=== PATIENT | female | born 1945 | race Caucasian/White ===

== ENCOUNTER 2024-05-29 14:36 | Inpatient (IN) ==
--- NOTE | 2024-05-29 14:46 | ED Triage Note ---
Date of Service May 29, 2024 Provider in Triage Author: Viri Savage History of Present Illness This patient was briefly evaluated while in triage. An abbreviated physical exam was performed. This patient is a 78-year-old Female who presents to the ED for evaluation via EMS for evaluation of illness x 1 week, fevers, generalized pain and weakness fall yesterday and today-didn't hit her head and denies any focal injuries from the fall called EMS because she couldn't get up recently started on metoprolol Physical Exam GENERAL: NAD CARDIOVASCULAR: RRR RESPIRATORY: CTA ABDOMEN: BS x 4. Nontender to palpation. Initial orders for labs and / or imaging were placed and patient was placed in the waiting area until a bed is available. Please see further documentation for the full ED course.
[2024-05-29] MEDS: ACETAMINOPHEN 500 MG TAB PO STA (15:18)
[2024-05-29 15:33] LABS: Basophils # (auto) 0.06 K/uL (0.00-0.20); Basophils % (auto) 0.3 %; Eosinophils # (auto) 0.02 K/uL (0.00-0.50); Eosinophils % (auto) 0.1 %; Hematocrit (blood only) 36.9 % (37.0-47.0); Hemoglobin 12.2 g/dl (12.0-16.0); Immature Granulocytes # (auto) 0.16 K/uL (0.01-0.20); Immature Granulocytes % (auto) 0.8 %; Lymphocytes # (auto) 0.48 K/uL (1.20-3.40); Lymphocytes % (auto) 2.5 %; Mean Corpuscular Hgb Conc 33.1 g/dL (32.0-36.0); Mean Corpuscular Volume 90.9 fL (80.0-100.0); Mean Platelet Volume 9.5 fL (9.4-12.4); Monocytes # (auto) 1.81 K/uL (0.11-0.59); Monocytes % (auto) 9.6 %; Neutrophils # (auto) 16.41 K/uL (1.40-6.50); Neutrophils % (auto) 86.7 %; Platelet Count 208 K/uL (130-400); RDW Coefficient of Variation 13.3 % (11.5-14.5); RDW Standard Deviation 44.3 fL (36.4-46.3); Red Blood Count 4.06 M/uL (4.20-5.40); White Blood Count 18.94 K/ul (4.8-10.8)
--- NOTE | 2024-05-29 15:42 | XRay Report ---
XR chest 1V not portable HISTORY: 78 years-old Female weakness, illness COMPARISON: 04/29/2021 TECHNIQUE: AP view the chest FINDINGS: Cardiomediastinal and hilar silhouettes are within normal limits. No pneumothorax, pleural effusion, airspace consolidation or pulmonary edema. Degenerative changes of the shoulders and spine. IMPRESSION: No acute process. ACT 112: Negative or not required by law. The above report was generated using voice recognition software. It may contain grammatical, syntax o r spelling errors. Electronically signed by: Andrew Gray M.D. 05/29/2024 3:41 PM
[2024-05-29 15:58] LABS: Albumin Level 3.8 gm/dl (3.4-5.0); Anion Gap 9 (3-11); Bilirubin,Total 0.4 mg/dl (0.2-1.0); Calcium 9.2 mg/dl (8.6-10.3); Carbon Dioxide 23 mmol/L (21-32); Chloride 99 mmol/L (98-107); Magnesium 1.9 mg/dl (1.7-2.4); Potassium 3.9 mmol/L (3.5-5.1); Sodium 131 mmol/L (136-145)
[2024-05-29 16:03] LABS: Troponin I High Sensitivity 15.3 pg/ml (0-14)
[2024-05-29 16:04] LABS: Alanine Aminotransferase 23 U/L (7-52); Alkaline Phosphatase 82 U/L (34-104); Aspartate Aminotransferase 64 U/L (13-39); BUN Creatinine Ratio 27.3 (10-20); Blood Urea Nitrogen 41 mg/dl (6-23); Creatine Kinase 1569 U/L (26-192); Globulin 3.8 gm/dl (2.5-4.0); Glucose 116 mg/dl (70-99(Fasting)); Total Protein 7.6 gm/dl (6.0-8.3)
--- NOTE | 2024-05-29 16:07 | Emergency Department Note ---
Impression & Plan Febrile illness, acute, Generalized weakness, Acute UTI (urinary tract infection), Rhabdomyolysis ED Provider Note NAME: WILD TEIXEIRA AGE: 78 SEX: Female INFORMANT: Patient ED PROVIDER(S): Jhonny Murrieta MD CHIEF COMPLAINT: Illness PLAN: Disposition: admitted Outpatient prescription management: None Referral: None MEDICAL DECISION MAKING: Patient presented because of illness. Workup was initiated. Chest x-ray and BioFire testing were done and were negative. Patient had a negative chest x-ray and BioFire. Patient had no significant injury from her fall just felt generally sore all over. She was found to have a significant leukocytosis and elevated total CK. Troponin borderline. Tick labs are negative. Patient was hydrated. Urinalysis was obtained and was concerning for infection. The patient had a slight temperature. She was treated with Tylenol, fluids, and Rocephin. Given the generalized weakness and multiple falls further evaluation and management in the hospital was deemed appropriate. [facility] Patient was evaluated in the ER and admitted for further management. Care/management discussed with: none Level of care consideration(s): After review of the information above and other included data, I feel the patient requires escalation of care to admission. Triage Nursing notes: reviewed and agree them. Vital Signs: reviewed and remarkable for no significant abnormalities Additional History obtained from: none Chronic Medical/Social Conditions affecting care: Hypertension, diabetes Prior/ Outside/ External records reviewed: none Differential Diagnosis: Viral syndrome, sepsis, UTI, pneumonia, metabolic, electrolyte abnormalities, cardiac sources, as well as other pathologies. Diagnostics, independently interpreted by me: ECG: Twelve-lead ECG was sinus tachycardia first-degree block and inferolateral T wave inversion at 112 bpm. Cardiac Monitoring: Cardiac monitoring ordered by me: The patient was placed on continuous cardiac monitoring and observed. It revealed a normal sinus rhythm at 94 beats per minute without ectopy or evidence of dysrhythmia. Medical decision rules: none Imaging studies: Chest x-ray. Findings: A chest x-ray was performed and revealed no pneumothorax, effusion, infiltrate, pulmonary edema, free air under the diaphragm, or wide mediastinum. Impression: No acute disease. HPI: 78 year old Female arrives for evaluation of generalized weakness and illness. This started about a week ago and is worsening. Patient states she feels generally weak and had 2 falls. She denies any significant injury from the falls. She did not hit her head. She is not currently taking any blood thinners. She notes generalized muscle aches.. The patient also notes the following associated symptoms, congestion cough.. The patient has taken Tylenol for relieving factors. Current pain is rated as mild. Patient notes she has been having some bladder pain but attributed to her pt denies LOC, headache, visual changes, neck pain, breathing difficulties, nausea, vomiting, abdominal pain, back pain, melena, hematochezia, numbness, lymphadenopathy, rash, or other complaints. PAST MEDICAL HISTORY: See Below, chronic venous insufficiency, hypertension PAST SURGICAL HISTORY: See Below, SOCIAL HISTORY: See Below, non-smoker HOME MEDICATIONS: See Below ALLERGIES: See Below VITALS: See Below PHYSICAL EXAMINATION: GENERAL: Awake, alert, mildly ill-appearing, in no distress HENT: Normocephalic, atraumatic. Oropharynx unremarkable. EYES: Normal conjunctiva. Sclera non-icteric. NECK: Inspection normal. Non-tender. Supple. No nuchal rigidity. FROM. No masses. RESPIRATORY: Clear to auscultation. No wheezes. No rales. Normal respiratory effort. CARDIAC: Tachycardic rate. Normal rhythm. No murmurs. No rubs. Extremities warm and well perfused. Pulses equal. No JVD. GI: Soft, non-distended. No tenderness to palpation. No rebound or guarding. No masses. RECTAL: Deferred. MUSCULOSKELETAL: Atraumatic. Chest examination reveals no tenderness. The back is symmetrical on inspection without obvious abnormality. There is no CVA tenderness to palpation. No joint edema. LOWER EXTREMITIES: Calves are equal size bilaterally and non-tender. 2+ edema. No discoloration. NEURO: Normal sensorium. No sensory or motor deficits noted. SKIN: No rash or jaundice noted. PROCEDURES: none CRITICAL CARE: none OBSERVATION NOTE: none Past Med/Surg History Problem List (Updated 05/29/24 @ 21:02 by Gaurav Espitia) Rhabdomyolysis (Acute) Acute UTI (urinary tract infection) (Acute) Generalized weakness (Acute) Febrile illness, acute (Acute) Incontinence (Chronic) Chronic venous insufficiency (Chronic) Hypertension (Chronic) Morbid obesity (Chronic) Impaired fasting glucose (Chronic) Circadian rhythm sleep disorder, delayed sleep phase type (Chronic) Migraine headache (Chronic) Depression with anxiety (Chronic) Hypothyroidism (Chronic) Insomnia (Chronic) Stress incontinence (Chronic) Hyperlipidemia (Chronic) Medical History History of colon polyps Vitamin D deficiency Surgical History Hx of oral surgery History of esophagogastroduodenoscopy (EGD) H/O of hysterectomy with bilateral oophorectomy H/O colonoscopy S/P hernia repair H/O wisdom tooth extraction S/P tonsillectomy Family History Mother Depression Dementia Osteoarthritis Pulmonary fibrosis Scleroderma Father Heart disease Myocardial infarction Migraines Sister Migraines Grandfather (Maternal) Diabetes Denies family history of Ovarian cancer Prostate cancer Breast cancer Colorectal cancer Cancer Hypertension Stroke Social History Smoking Status: Never smoker Second Hand Exposure: No; Do You Dip or Chew Tobacco: No; Hx Alcohol Use: Yes Alcohol type: beer and wine Alcohol Intake Frequency: Monthly or Less Hx Substance Use: No Preferred Language: Gambian Communication Ability: Effective Hearing Ability: Normal Choir Accompanist Required: No Beliefs That Will Affect Care: None marital status: single Current Living Situation: Alone current occupational status: retired Feels Safe at Home: Yes Childhood Exposure to Second-Hand Smoke: No Dental Care, Regularly: No Physical Activity Frequency: Does not Exercise Seatbelt Use: always Sunscreen Use: No Assistive Devices: None Allergies Allergies Allergy/AdvReac Type Severity Reaction Status Date / Time latex Allergy Mild localized Verified 10/30/23 11:07 itching amlodipine [From Lotrel] AdvReac Severe lower jaw Verified 10/30/23 11:07 swelling benazepril [From Lotrel] AdvReac Intermediate lower jaw Verified 10/30/23 11:07 swelling sulfacetamide AdvReac Intermediate ankle Verified 10/30/23 11:07 pruritus Lume Deodorant AdvReac Mild Rash/irrita Uncoded 10/30/23 11:07 tion Home Meds Home Medications Medication Instructions Recorded Confirmed multivitamin 1 tab PO HS 03/26/19 10/30/23 digestive enzymes 2 cap PO BID 03/27/19 10/30/23 coenzyme Q10 200 mg capsule 400 mg PO QAM 12/02/19 10/30/23 ibuprofen 200 mg tablet 600 mg PO QAM 02/16/21 10/30/23 magnesium oxide 600 mg PO HS 02/16/21 10/30/23 acetaminophen 650 mg 1,950 mg PO BID 12/27/21 10/30/23 tablet,extended release (Tylenol Arthritis Pain) collagen miscellaneous 10/11/22 10/30/23 [id number] borate 3 tab PO DAILY 10/11/22 10/30/23 [Move Free Joint [facility]] Previous Rx's Medication Instructions Recorded albuterol sulfate 90 mcg/actuation 2 puff inhalation Q6H PRN 03/06/22 aerosol inhaler shortness of breath or wheezing #8.5 grams clotrimazole-betamethasone 1 1 applic topical BID PRN rash #45 03/20/22 %-0.05 % topical cream grams diclofenac sodium 1 % topical gel 2 g topical QID PRN arthritis pain 04/30/23 #100 grams metoprolol succinate 25 mg 25 mg PO DAILY #90 tabs 04/30/23 tablet,extended release 24 hr azelastine 137 mcg (0.1 %) nasal 2 spray intranasal BID #30 mL 05/24/23 spray hydrochlorothiazide 25 mg tablet 25 mg PO DAILY #90 tabs 06/20/23 potassium chloride 10 mEq 10 meq PO DAILY #90 tabs 06/20/23 tablet,extended release topiramate 50 mg tablet 50 mg PO HS #90 tabs 06/20/23 montelukast 10 mg tablet 10 mg PO DAILY #90 tabs 07/11/23 rosuvastatin 5 mg tablet 5 mg PO DAILY #90 tabs 08/20/23 metformin 500 mg tablet,extended 500 mg PO DAILY #90 tabs 10/19/23 release 24 hr amitriptyline 25 mg tablet See Rx Instructions .Route 12/10/23 .COMPLEX #450 tabs vibegron 75 mg tablet (Gemtesa) 75 mg PO DAILY #90 tabs 02/21/24 levothyroxine 125 mcg tablet 125 mcg PO DAILY #90 tabs 04/21/24 Results & Data (ED) Vital Signs Vital Signs - 24 hr 05/29/24 14:44 05/29/24 15:43 05/29/24 15:54 Temperature 37.6 C H Temperature Source Oral Pulse Rate 113 H 108 H Pulse Rate [Apical] 102 H Respiratory Rate 18 18 Respiratory Effort / Characteristics Non-Labored Spontaneous Non-Labored Spontaneous Respiratory Depth Normal Normal Respiratory Pattern Regular Blood Pressure 111/71 Blood Pressure [Left Arm] 114/67 Blood Pressure Mean 84 Blood Pressure Mean [Left Arm] 82 Pulse Oximetry 98 92 Oxygen Delivery Method Room Air Room Air Sepsis Recent Fever Within 48 Hours No Sepsis New/Unexplained Change in Mental Status N/A Sepsis Action Taken by Nursing No Action Required 05/29/24 15:55 05/29/24 17:00 05/29/24 18:00 Temperature Temperature Source Pulse Rate Pulse Rate [Apical] 92 H 96 H Respiratory Rate 28 H 18 Respiratory Effort / Characteristics Non-Labored Spontaneous Non-Labored Spontaneous Respiratory Depth Normal Normal Respiratory Pattern Regular Blood Pressure Blood Pressure [Left Arm] 97/60 L 109/70 Blood Pressure Mean Blood Pressure Mean [Left Arm] 72 83 Pulse Oximetry 92 94 98 Oxygen Delivery Method Room Air Room Air Room Air Sepsis Recent Fever Within 48 Hours Sepsis New/Unexplained Change in Mental Status Sepsis Action Taken by Nursing 05/29/24 20:00 05/29/24 20:22 Temperature Temperature Source Pulse Rate Pulse Rate [Apical] 88 94 H Respiratory Rate 19 25 H Respiratory Effort / Characteristics Non-Labored Spontaneous Non-Labored Spontaneous Respiratory Depth Normal Normal Respiratory Pattern Blood Pressure Blood Pressure [Left Arm] 98/72 L 104/60 Blood Pressure Mean Blood Pressure Mean [Left Arm] 80 74 Pulse Oximetry 95 95 Oxygen Delivery Method Room Air Room Air Sepsis Recent Fever Within 48 Hours Sepsis New/Unexplained Change in Mental Status Sepsis Action Taken by Nursing Laboratory Data 05/29/24 15:22 05/29/24 15:22 Lab Results 05/29/24 05/29/24 Range/Units 15:22 16:32 WBC 18.94 H (4.8-10.8) K/ul RBC 4.06 L (4.20-5.40) M/uL Hgb 12.2 (12.0-16.0) g/dl Hct 36.9 L (37.0-47.0) % MCV 90.9 (80.0-100.0) fL MCH 30.0 (25.0-34.0) pg MCHC 33.1 (32.0-36.0) g/dL RDW Std Deviation 44.3 (36.4-46.3) fL RDW Coeff of Jenn 13.3 (11.5-14.5) % Plt Count 208 (130-400) K/uL MPV 9.5 (9.4-12.4) fL Immature Gran % (Auto) 0.8 % Neut % (Auto) 86.7 % Lymph % (Auto) 2.5 % [place] % (Auto) 9.6 % Eos % (Auto) 0.1 % Baso % (Auto) 0.3 % Neut # (Auto) 16.41 H (1.40-6.50) K/uL Lymph # (Auto) 0.48 L (1.20-3.40) K/uL [place] # (Auto) 1.81 H (0.11-0.59) K/uL Eos # (Auto) 0.02 (0.00-0.50) K/uL Baso # (Auto) 0.06 (0.00-0.20) K/uL Immature Gran # (Auto) 0.16 (0.01-0.20) K/uL Sodium 131 L (136-145) mmol/L Potassium 3.9 (3.5-5.1) mmol/L Chloride 99 (98-107) mmol/L Carbon Dioxide 23 (21-32) mmol/L Anion Gap 9 (3-11) BUN 41 H (6-23) mg/dl Creatinine 1.50 H (0.6-1.2) mg/dl Est Cr Clr Drug Dosing Not Reportable eGFR 35.67 BUN/Creatinine Ratio 27.3 H (10-20) Glucose 116 H (70-99(Fasting)) mg/dl Lactate 1.1 (0.4-2.0) mmol/L Calcium 9.2 (8.6-10.3) mg/dl Magnesium 1.9 (1.7-2.4) mg/dl Total Bilirubin 0.4 (0.2-1.0) mg/dl AST 64 H (13-39) U/L ALT 23 (7-52) U/L Alkaline Phosphatase 82 (34-104) U/L Total Creatine Kinase 1569 H (26-192) U/L Troponin I High Sens 15.3 H (0-14) pg/ml Total Protein 7.6 (6.0-8.3) gm/dl Albumin 3.8 (3.4-5.0) gm/dl Globulin 3.8 (2.5-4.0) gm/dl Albumin/Globulin Ratio 1.0 (0.9-2) Procalcitonin 10.40 H (0-0.5) ng/ml TSH 0.797 (0.300-4.500) uIu/ml Urine Color Yellow Urine Appearance Turbid A (Clear) Urine pH 5.5 (4.5-7.5) Ur Specific [place] 1.019 (1.000-1.030) Urine Protein 2+ H (Negative) Urine Glucose (UA) Negative (Negative) Urine Ketones Negative (Negative) Urine Blood 2+ H (Negative) Urine Nitrite Negative (Negative) Urine Bilirubin Negative (Negative) Urine Urobilinogen Negative (Negative) Ur Leukocyte Esterase 3+ H (Negative) Urine WBC (Auto) >50 H (0-5) /hpf Urine RBC (Auto) 0-2 (0-2) /hpf U Hyaline Cast (Auto) 11-20 H (0-2) /lpf U Epithel Cells (Auto) 3-5 H (0-2) /hpf Urine Bacteria (Auto) 4+ H (None Seen) Adenovirus (PCR) Not Detected (NotDetected) Anaplasma Smear See Comment Babesia Smear See Comment B. pertussis DNA (PCR) Not Detected (NotDetected) B.parapertussis DNA PCR Not Detected (NotDetected) Lyme Disease Screen Negative (Negative) C. pneumoniae DNA (PCR) Not Detected (NotDetected) Coronavirus OC43 (PCR) Not Detected (NotDetected) Coronavirus HKU1 (PCR) Not Detected (NotDetected) Coronavirus 229E (PCR) Not Detected (NotDetected) SARS-CoV-2 (PCR) Not Detected (NotDetected) Coronavirus NL63 (PCR) Not Detected (NotDetected) Human Metapneumovir PCR Not Detected (NotDetected) Influenza Type A (PCR) Not Detected (NotDetected) Influenza Type B (PCR) Not Detected (NotDetected) M. pneumoniae (PCR) Not Detected (NotDetected) Parainfluenza 1 (PCR) Not Detected (NotDetected) Parainfluenza 2 (PCR) Not Detected (NotDetected) Parainfluenza 3 (PCR) Not Detected (NotDetected) Parainfluenza 4 (PCR) Not Detected (NotDetected) RSV (PCR) Not Detected (NotDetected) Entero/Rhino (PCR) Not Detected (NotDetected) Administered Medications Sodium Chloride (Nss) 1,000 mls @ 150 mls/hr IV .Q6H40M AUGUST Stop: 05/30/24 16:14 Last Admin: 05/29/24 16:30 Dose: 150 mls/hr Documented By: JANAK Discontinued Medications Acetaminophen (Acetaminophen 500 Mg Tab) 1,000 mg PO NOW STA Stop: 05/29/24 15:04 Last Admin: 05/29/24 15:18 Dose: 1,000 mg Documented By: JUSTIN Ceftriaxone Sodium (Rocephin) 2,000 mg in 50 mls @ 100 mls/hr IV NOW STA Stop: 05/29/24 17:40 Last Infusion: 05/29/24 17:47 Dose: Infused Documented By: Admin: 05/29/24 17:17 Dose: 100 mls/hr Documented By: JANAK Sodium Chloride (Nss) 1,000 mls @ 999 mls/hr IV .Q1H1M ONE Stop: 05/29/24 18:56 Last Infusion: 05/29/24 19:15 Dose: Infused Documented By: Admin: 05/29/24 18:13 Dose: 999 mls/hr Documented By: JANAK Imaging Data Radiologist's Impression: Chest X-Ray 05/29/24 14:54 XR chest 1V not portable HISTORY: 78 years-old Female weakness, illness COMPARISON: 04/29/2021 TECHNIQUE: AP view the chest FINDINGS: Cardiomediastinal and hilar silhouettes are within normal limits. No pneumothorax, pleural effusion, airspace consolidation or pulmonary edema. Degenerative changes of the shoulders and spine. IMPRESSION: No acute process. ACT 112: Negative or not required by law. The above report was generated using voice recognition software. It may contain grammatical, syntax or spelling errors. Electronically signed by: Andrew Gray M.D. 05/29/2024 3:41 PM Discharge Plan Visit Data Chief Complaint: Illness Stated Complaint: FALL ED Provider: Jhonny Murrieta Discharge Problem: Febrile illness, acute, Generalized weakness, Acute UTI (urinary tract infection), Rhabdomyolysis Patient Disposition: Admitted As Inpatient
[2024-05-29 16:13] LABS: Thyroid Stimulating Hormone 0.797 uIu/ml (0.300-4.500)
[2024-05-29 16:27] LABS: Adenovirus PCR Not Detected (NotDetected); Bordetella parapertussis PCR Not Detected (NotDetected); Bordetella pertussis PCR Not Detected (NotDetected); Chlamydia pneumoniae PCR Not Detected (NotDetected); Coronavirus 229E PCR Not Detected (NotDetected); Coronavirus CoV-2 (COVID19)PCR Not Detected (NotDetected); Coronavirus HKU1 PCR Not Detected (NotDetected); Coronavirus NL63 PCR Not Detected (NotDetected); Coronavirus OC43PCR Not Detected (NotDetected); Human Metapneumovirus PCR Not Detected (NotDetected); Influenza A PCR Not Detected (NotDetected); Influenza B PCR Not Detected (NotDetected); Mycoplasma pneumoniae PCR Not Detected (NotDetected); Parainfluenza Virus 1 PCR Not Detected (NotDetected); Parainfluenza Virus 2 PCR Not Detected (NotDetected); Parainfluenza Virus 3 PCR Not Detected (NotDetected); Parainfluenza Virus 4 PCR Not Detected (NotDetected); Respiratory Syncytial VirusPCR Not Detected (NotDetected); Rhinovirus/Enterovirus PCR Not Detected (NotDetected)
[2024-05-29] MEDS: SODIUM CHLORIDE 0.9% 1,000 ML IV SCH ×2 (16:30→21:38)
--- NOTE | 2024-05-29 16:50 | Electrocardiogram Report ---
Test Reason : Blood Pressure : */* mmHG Vent. Rate : 112 BPM Atrial Rate : 112 BPM P-R Int : 266 ms QRS Dur : 90 ms QT Int : 330 ms P-R-T Axes : 49 -19 -46 degrees QTcB Int : 450 ms Sinus tachycardia with 1st degree A-V block Diffuse Nonspecific ST and T wave abnormality Abnormal ECG No previous ECGs available Confirmed by Josh Monzon ([id number]) on 05/29/2024 4:50:29 PM Referred By: Confirmed By: Josh Monzon
[2024-05-29 16:56] LABS: Appearance Urine Turbid (Clear); Bacteria Urine Automated 4+ (None Seen); Bilirubin Urine Negative (Negative); Blood Urine 2+ (Negative); Color Urine Yellow; Glucose Urine UA Negative (Negative); Ketones Urine Negative (Negative); Leukocyte Esterase Urine 3+ (Negative); Nitrite Urine Negative (Negative); Protein Urine 2+ (Negative); RBC Urine Automated 0-2 /hpf (0-2); Specific Gravity Urine 1.019 (1.000-1.030); Urobilinogen Urine Negative (Negative); WBC Urine Automated >50 /hpf (0-5); pH Urine 5.5 (4.5-7.5)
[2024-05-29] MEDS: cefTRIAXone SODIUM 2,000 MG/50 ML BAG IV STA (17:17)
--- NOTE | 2024-05-29 18:01 | History & Physical Report ---
Date of Service May 29, 2024 Assessment & Plan (1) Sepsis: Plan: SIRS criteria met with HR and elevated WBC Secondary to urinary source RUQ on exam therefore US liver ordered although suspect this is less likely as a cause Empiric ceftriaxone, follow up urine and blood cultures (2) Rhabdomyolysis: Plan: CK 1569 on admission. NSS @ 125ml/hr. Repeat CK in AM. (3) Fall: Plan: Secondary to generalized weakness suspect from UTI PT/OT (4) Hypothyroidism: Plan: TSH WNL Continue levothyroxine (5) Hypertension: Plan: Hold HCTZ Continue metoprolol (6) Acute UTI (urinary tract infection): Plan VTE Prophylaxis - heparin 5000 units SQ BID Diet - regular Disposition - admit to PCU Admission and Anticipated Discharge Date Admission Date: May 29, 2024 History of Present Illness Chief Complaint: Fall Generalized weakness Primary Care Provider: Mary Rodriguez MD Richelle Thurman is a 78 year old female who presents to the ER with a fall and generalized weakness. She also notes bladder pains for the last month and urinary frequency for the last week. Fever for the last 2 days with high 101.1 degrees Fahrenheit. No back pain, dysuria or change in urine color or smell. No respiratory of gastrointestinal symptoms. She lives by herself. She took all her morning medications this morning. Allergies Allergy/AdvReac Type Severity Reaction Status Date / Time latex Allergy Mild localized Verified 10/30/23 11:07 itching amlodipine [From Lotrel] AdvReac Severe lower jaw Verified 10/30/23 11:07 swelling benazepril [From Lotrel] AdvReac Intermediate lower jaw Verified 10/30/23 11:07 swelling sulfacetamide AdvReac Intermediate ankle Verified 10/30/23 11:07 pruritus Lume Deodorant AdvReac Mild Rash/irrita Uncoded 10/30/23 11:07 tion Home Medications Medication Instructions Recorded Confirmed Type multivitamin 1 tab PO HS 03/26/19 10/30/23 History digestive enzymes 2 cap PO BID 03/27/19 10/30/23 History coenzyme Q10 200 mg capsule 400 mg PO QAM 12/02/19 10/30/23 History ibuprofen 200 mg tablet 600 mg PO QAM 02/16/21 10/30/23 History magnesium oxide 600 mg PO HS 02/16/21 10/30/23 History acetaminophen 650 mg 1,950 mg PO BID 12/27/21 10/30/23 History tablet,extended release (Tylenol Arthritis Pain) albuterol sulfate 90 mcg/actuation 2 puff inhalation Q6H PRN 03/06/22 10/30/23 Rx aerosol inhaler shortness of breath or wheezing #8.5 grams clotrimazole-betamethasone 1 1 applic topical BID PRN rash #45 03/20/22 10/30/23 Rx %-0.05 % topical cream grams collagen miscellaneous 10/11/22 10/30/23 History rwnwjdta-hpgkh-resic-CF borate 3 tab PO DAILY 10/11/22 10/30/23 History [[facility]] diclofenac sodium 1 % topical gel 2 g topical QID PRN arthritis pain 04/30/23 10/30/23 Rx #100 grams metoprolol succinate 25 mg 25 mg PO DAILY #90 tabs 04/30/23 10/30/23 Rx tablet,extended release 24 hr azelastine 137 mcg (0.1 %) nasal 2 spray intranasal BID #30 mL 05/24/23 10/30/23 Rx spray hydrochlorothiazide 25 mg tablet 25 mg PO DAILY #90 tabs 06/20/23 10/30/23 Rx potassium chloride 10 mEq 10 meq PO DAILY #90 tabs 06/20/23 10/30/23 Rx tablet,extended release topiramate 50 mg tablet 50 mg PO HS #90 tabs 06/20/23 10/30/23 Rx montelukast 10 mg tablet 10 mg PO DAILY #90 tabs 07/11/23 10/30/23 Rx rosuvastatin 5 mg tablet 5 mg PO DAILY #90 tabs 08/20/23 10/30/23 Rx metformin 500 mg tablet,extended 500 mg PO DAILY #90 tabs 10/19/23 10/30/23 Rx release 24 hr amitriptyline 25 mg tablet See Rx Instructions .Route 12/10/23 Rx .COMPLEX #450 tabs vibegron 75 mg tablet (Gemtesa) 75 mg PO DAILY #90 tabs 02/21/24 Rx levothyroxine 125 mcg tablet 125 mcg PO DAILY #90 tabs 04/21/24 Rx Past Med/Surg History Problem List (Updated 05/30/24 @ 09:37 by Quentin Field MD) Fall Sepsis Rhabdomyolysis (Acute) Acute UTI (urinary tract infection) (Acute) Generalized weakness (Acute) Febrile illness, acute (Acute) Incontinence (Chronic) Chronic venous insufficiency (Chronic) Hypertension (Chronic) Morbid obesity (Chronic) Impaired fasting glucose (Chronic) Circadian rhythm sleep disorder, delayed sleep phase type (Chronic) Migraine headache (Chronic) Depression with anxiety (Chronic) Hypothyroidism (Chronic) Insomnia (Chronic) Stress incontinence (Chronic) Hyperlipidemia (Chronic) Medical History History of colon polyps Vitamin D deficiency Surgical History Hx of oral surgery History of esophagogastroduodenoscopy (EGD) H/O of hysterectomy with bilateral oophorectomy H/O colonoscopy S/P hernia repair H/O wisdom tooth extraction S/P tonsillectomy Family History Mother Depression Dementia Osteoarthritis Pulmonary fibrosis Scleroderma Father Heart disease Myocardial infarction Migraines Sister Migraines Grandfather (Maternal) Diabetes Denies family history of Ovarian cancer Prostate cancer Breast cancer Colorectal cancer Cancer Hypertension Stroke Social History Smoking Status: Never smoker Second Hand Exposure: No; Do You Dip or Chew Tobacco: No; Tobacco Cessation Education Requested by Patient: No Hx Alcohol Use: No Hx Substance Use: No Preferred Language: Belarusian Communication Ability: Effective Hearing Ability: Normal Geology Associate Required: No Beliefs That Will Affect Care: None marital status: single Current Living Situation: Alone current occupational status: retired Other Information That Helps Us Care for You: No Feels Safe at Home: Yes Safety Concerns: Feels Safe At This Time Childhood Exposure to Second-Hand Smoke: No Dental Care, Regularly: No Physical Activity Frequency: Does not Exercise Seatbelt Use: always Sunscreen Use: No Assistive Devices: Glasses and Walker Review of Systems Review of Systems: All systems reviewed & are unremarkable except as noted in HPI & below Physical Exam Constitutional: WD/WN, vitals as above ENMT: external ear and nose normal, oropharynx normal Respiratory: normal respiratory effort, lungs clear to auscultation Cardiovascular: Rate/Rhythm: regular rhythm and + tachycardic Heart Sounds: no murmur Extremities: normal capillary refill; no calf tenderness and no pedal edema Gastrointestinal (Abdomen): normal bowel sounds, soft, nontender, no hepatosplenomegaly Musculoskeletal: no cyanosis or clubbing, extremities motor strength 5/5 Skin: no rashes, warm and dry Neurologic: moves all extremities and awake; not confused Psychiatric: A+Ox3, euthymic affect Genitourinary: no CVA tenderness Results & Data Results & Data Vital Signs (Past 12 Hours) Vital Signs Temp Pulse Pulse Resp BP BP Pulse Ox 05/29/24 17:00 92 H 28 H 97/60 L 94 05/29/24 15:55 92 05/29/24 15:54 102 H 18 114/67 92 05/29/24 15:43 108 H 05/29/24 14:44 37.6 C H 113 H 18 111/71 98 O2 Del Method 05/29/24 17:00 Room Air 05/29/24 15:55 Room Air 05/29/24 15:54 Room Air 05/29/24 15:43 05/29/24 14:44 Room Air Diagnostic Findings XR chest 1V not portable HISTORY: 78 years-old Female weakness, illness COMPARISON: 04/29/2021 TECHNIQUE: AP view the chest FINDINGS: Cardiomediastinal and hilar silhouettes are within normal limits. No pneumothorax, pleural effusion, airspace consolidation or pulmonary edema. Degenerative changes of the shoulders and spine. IMPRESSION: No acute process. Medications Administered ER Medications Given: Acetaminophen 1000mg PO Normal saline @ 150ml/hr Ceftriaxone 2000mg IV ECG Rate (beats per minute): 112 Rhythm: sinus tachycardia Findings: + 1st degree AV block Comparison ECG Date: no prior available Code Status & VTE Plan Code Status Full VTE Prophylaxis Plan VTE Prophylaxis will be ordered: Yes PG Care Time/CCT Total # of Minutes Spent Total Time Spent with Patient: Total time spent is greater than 50% in coordination of care (as documented) at patient's floor/unit and/or counseling patient: Coding Level of Care Code 49454 INT INP/OBS CARE 3/75MIN Diagnoses Sepsis A41.9 Rhabdomyolysis M62.82 Fall W19.XXXA Hypothyroidism E03.9 Hypertension I10 Acute UTI (urinary tract infection) N39.0
[2024-05-29] MEDS: SODIUM CHLORIDE 0.9% 1,000 ML IV ONE (18:13)
[2024-05-29] MEDS: MONTELUKAST SODIUM 10 MG TABLET PO SCH (21:41)
[2024-05-29] MEDS: AMITRIPTYLINE HCL 25 MG TAB PO SCH (21:41)
[2024-05-29] MEDS: TOPIRAMATE 50 MG TAB PO SCH (21:41)
--- NOTE | 2024-05-29 21:57 | Ultrasound Report ---
Exam(s): US LIVER EXAM: US Abdomen Limited CLINICAL HISTORY: Reason for exam: RUQ pain on exam, sepsis. TECHNIQUE: Real-time ultrasound of the abdomen with image documentation. COMPARISON: No relevant prior studies available. FINDINGS: Liver: 0.8 x 0.6 x 0.8 cm left hepatic lobe hyperdense structure likely representing a hemangioma. Kidneys: Slight prominence of the right renal collecting system. 2.4 cm right parapelvic cyst. Lymph nodes: 2.5 x 1.6 x 0.7 cm perihepatic lymph node. IMPRESSION: No acute findings in the visualized abdomen. Chronic changes as above Electronically signed by: Manny Wallis MD 05/29/24 21:57 PM
[2024-05-29] MEDS: HEPARIN SOD 5,000 UNIT/0.5 ML VIAL SQ SCH (23:26)
--- NOTE | 2024-05-30 03:41 | Communication Note ---
Date of Service: May 30, 2024 I was alerted by nursing that pt had a witnessed mechanical fall while ambulating out of bathroom back to her bed. Patient seen and examined. Patient states she was trying to ambulate with IV pole and lost her balance. She denies LOC, head strike, new pain. Not on blood thinning medication. Defer imaging at this time. Patient instructed to inform nursing if she develops any new pain or other symptoms. Resident Activity Tracking Resident Involvement: Resident Care Provided Care Provided: Adult Hospital Medicine
[2024-05-30] MEDS: LEVOTHYROXINE SODIUM 125 MCG TABLET PO SCH (05:36)
[2024-05-30 08:00] LABS: Basophils # (auto) 0.03 K/uL (0.00-0.20); Basophils % (auto) 0.2 %; Eosinophils # (auto) 0.03 K/uL (0.00-0.50); Eosinophils % (auto) 0.2 %; Hematocrit (blood only) 36.5 % (37.0-47.0); Immature Granulocytes # (auto) 0.09 K/uL (0.01-0.20); Immature Granulocytes % (auto) 0.7 %; Lymphocytes # (auto) 0.76 K/uL (1.20-3.40); Mean Corpuscular Hemoglobin 30.6 pg (25.0-34.0); Mean Corpuscular Hgb Conc 32.9 g/dL (32.0-36.0); Mean Corpuscular Volume 93.1 fL (80.0-100.0); Mean Platelet Volume 10.3 fL (9.4-12.4); Monocytes # (auto) 1.66 K/uL (0.11-0.59); Monocytes % (auto) 13.1 %; Neutrophils % (auto) 79.8 %; Platelet Count 184 K/uL (130-400); RDW Coefficient of Variation 13.4 % (11.5-14.5); RDW Standard Deviation 45.9 fL (36.4-46.3); Red Blood Count 3.92 M/uL (4.20-5.40); White Blood Count 12.67 K/ul (4.8-10.8)
[2024-05-30 08:04] LABS: Albumin Level 3.4 gm/dl (3.4-5.0); Bilirubin,Total 0.3 mg/dl (0.2-1.0); Calcium 8.4 mg/dl (8.6-10.3); Potassium 3.8 mmol/L (3.5-5.1)
[2024-05-30 08:11] LABS: BUN Creatinine Ratio 25.4 (10-20); Creatinine Clr Calc Pharmacy 41.7 ml/min; Globulin 3.3 gm/dl (2.5-4.0); Total Protein 6.7 gm/dl (6.0-8.3)
[2024-05-30] MEDS: METOPROLOL SUCC 25MG EXT REL TAB PO SCH (09:01)
[2024-05-30] MEDS: VIBEGRON 75 MG TAB PO SCH (09:01)
[2024-05-30] MEDS: ROSUVASTATIN CALCIUM 5 MG TAB PO SCH (09:01)
[2024-05-30] MEDS: AZELASTINE HCL 0.1% NASAL 200 SPRAYS/27,400 MCG BTL NAE SCH (09:02)
[2024-05-30] MEDS: ACETAMINOPHEN 325 MG TAB PO PRN (09:24)
[2024-05-30] MEDS: cefTRIAXone SODIUM 2,000 MG/50 ML BAG IV SCH (16:55)
--- NOTE | 2024-05-30 18:02 | Hospitalist Progress Note ---
Date of Service May 30, 2024 Assessment & Plan (1) Sepsis: Plan: SIRS criteria met with HR and elevated WBC Secondary to urinary source, urine culture with E. coli without sensitives. Blood cultures negative after 24 hours. Liver US unremarkable WBC improving Continue empiric ceftriaxone (2) Rhabdomyolysis: Plan: CK down from admission. Will discontinue further IV fluids after current order a s eating and drinking well (3) Fall: Plan: Secondary to generalized weakness suspect from UTI PT/OT - plan to discharge to rehab (4) Hypothyroidism: Plan: TSH WNL Continue levothyroxine (5) Hypertension: Plan: Continue to hold HCTZ Continue metoprolol (6) Acute UTI (urinary tract infection): Plan VTE Prophylaxis - heparin 5000 units SQ BID Diet - regular Disposition - stable for transfer to med/surg Admission and Anticipated Discharge Date Admission Date: May 29, 2024 Subjective Patient fell overnight. Did not hit her head. No apparent injuries from fall. She is actually keen to be discharged however PT/OT recommending rehabilitation. Physical Exam Constitutional: WD/WN, vitals as above Respiratory: normal respiratory effort, lungs clear to auscultation Cardiovascular: Rate/Rhythm: regular rhythm and + tachycardic Heart Sounds: no murmur Extremities: no calf tenderness and no pedal edema Gastrointestinal (Abdomen): normal bowel sounds, soft, nontender, no hepatosplenomegaly Musculoskeletal: no cyanosis or clubbing, extremities motor strength 5/5 Skin: no rashes, warm and dry Neurologic: moves all extremities and awake; not confused Psychiatric: A+Ox3, euthymic affect Results & Data Results & Data Vital Signs (Past 12 Hours) Vital Signs Temp Pulse Pulse Resp BP Pulse Ox O2 Del Method 05/30/24 16:58 37.5 C 05/30/24 15:03 38.6 C H 103 H 20 121/71 96 Room Air 05/30/24 14:50 63 05/30/24 13:40 36.5 C 102 H 20 123/66 Room Air 05/30/24 10:36 37.5 C 99 H 19 97/61 L 93 Room Air 05/30/24 08:07 36.8 C 101 H 19 118/50 L 100 Room Air 05/30/24 07:29 91 H Laboratory Results Abnormal lab results 05/30/24 Range/Units 07:00 WBC 12.67 H (4.8-10.8) K/ul RBC 3.92 L (4.20-5.40) M/uL Hct 36.5 L (37.0-47.0) % Neut # (Auto) 10.10 H (1.40-6.50) K/uL Lymph # (Auto) 0.76 L (1.20-3.40) K/uL Mccreary # (Auto) 1.66 H (0.11-0.59) K/uL Sodium 134 L (136-145) mmol/L Carbon Dioxide 19 L (21-32) mmol/L BUN 33 H (6-23) mg/dl Creatinine 1.30 H (0.6-1.2) mg/dl BUN/Creatinine Ratio 25.4 H (10-20) Glucose 109 H (70-99(Fasting)) mg/dl Calcium 8.4 L (8.6-10.3) mg/dl AST 54 H (13-39) U/L Total Creatine Kinase 937 H (26-192) U/L PG Care Time/CCT Total # of Minutes Spent Total Time Spent with Patient: Total time spent is greater than 50% in coordination of care (as documented) at patient's floor/unit and/or counseling patient: Coding Level of Care Code 72558 SUB INP/OBS CARE 3/50MIN Diagnoses Sepsis A41.9 Rhabdomyolysis M62.82 Fall W19.XXXA Hypothyroidism E03.9 Hypertension I10 Acute UTI (urinary tract infection) N39.0
[2024-05-30] MEDS: IBUPROFEN 200 MG TAB PO PRN (23:40)
[2024-05-31 07:35] LABS: Basophils # (auto) 0.04 K/uL (0.00-0.20); Basophils % (auto) 0.5 %; Eosinophils # (auto) 0.16 K/uL (0.00-0.50); Eosinophils % (auto) 1.8 %; Hematocrit (blood only) 30.7 % (37.0-47.0); Hemoglobin 10.1 g/dl (12.0-16.0); Immature Granulocytes # (auto) 0.04 K/uL (0.01-0.20); Immature Granulocytes % (auto) 0.5 %; Lymphocytes # (auto) 1.03 K/uL (1.20-3.40); Lymphocytes % (auto) 11.7 %; Mean Corpuscular Hemoglobin 29.8 pg (25.0-34.0); Mean Corpuscular Hgb Conc 32.9 g/dL (32.0-36.0); Mean Corpuscular Volume 90.6 fL (80.0-100.0); Mean Platelet Volume 10.2 fL (9.4-12.4); Monocytes # (auto) 2.06 K/uL (0.11-0.59); Monocytes % (auto) 23.3 %; Neutrophils % (auto) 62.2 %; Platelet Count 191 K/uL (130-400); RDW Coefficient of Variation 13.4 % (11.5-14.5); RDW Standard Deviation 44.6 fL (36.4-46.3); Red Blood Count 3.39 M/uL (4.20-5.40); White Blood Count 8.83 K/ul (4.8-10.8)
[2024-05-31 08:11] LABS: BUN Creatinine Ratio 22.5 (10-20); Calcium 8.3 mg/dl (8.6-10.3); Creatinine Clr Calc Pharmacy 48.8 ml/min; Potassium 3.2 mmol/L (3.5-5.1)
--- NOTE | 2024-05-31 21:43 | Hospitalist Progress Note ---
Date of Service May 31, 2024 Assessment & Plan (1) Sepsis: Plan: SIRS criteria met with HR and elevated WBC Secondary to urinary source, urine culture with E. coli without sensitives. Blood cultures negative after 24 hours. Liver US unremarkable WBC improving Continue empiric ceftriaxone; patient still with intermittent fevers. will order procal in AM. (2) Rhabdomyolysis: Plan: CK down from admission. Will discontinue further IV fluids after current order as eating and drinking well (3) Fall: Plan: Secondary to generalized weakness suspect from UTI PT/OT - plan to discharge to rehab (4) Hypothyroidism: Plan: TSH WNL Continue levothyroxine (5) Hypertension: Plan: Continue to hold HCTZ Continue metoprolol (6) Acute UTI (urinary tract infection): Plan VTE Prophylaxis - heparin 5000 units SQ BID Diet - regular Disposition - stable for transfer to med/surg patient is asking to be discharged home Admission and Anticipated Discharge Date Admission Date: May 29, 2024 Subjective 78 yo female reports no new symptoms. Review of Systems Review of Systems: All systems reviewed & are unremarkable except as noted in HPI & below Physical Exam Constitutional: WD/WN, vitals as above Respiratory: normal respiratory effort, lungs clear to auscultation Cardiovascular: Rate/Rhythm: regular rate and regular rhythm Heart Sounds: no murmur Extremities: no calf tenderness and no pedal edema Gastrointestinal (Abdomen): normal bowel sounds, soft, nontender, no hepatosplenomegaly Musculoskeletal: no cyanosis or clubbing, extremities motor strength 5/5 Skin: no rashes, warm and dry Neurologic: moves all extremities and awake; not confused Psychiatric: A+Ox3, euthymic affect Results & Data Results & Data Vital Signs (Past 12 Hours) Vital Signs Temp Pulse Resp BP Pulse Ox O2 Del Method 05/31/24 19:49 37.7 C H 101 H 16 133/72 98 Room Air 05/31/24 14:27 36.3 C L 87 18 100/67 97 Room Air PG Care Time/CCT Total # of Minutes Spent Total Time Spent with Patient: Total time spent is greater than 50% in coordination of care (as documented) at patient's floor/unit and/or counseling patient: Coding Level of Care Code 68878 SUB INP/OBS CARE 2/35MIN Diagnoses Sepsis A41.9 Rhabdomyolysis M62.82 Fall W19.XXXA Hypothyroidism E03.9 Hypertension I10 Acute UTI (urinary tract infection) N39.0
[2024-06-01 07:21] LABS: Basophils # (auto) 0.05 K/uL (0.00-0.20); Basophils % (auto) 0.6 %; Eosinophils # (auto) 0.28 K/uL (0.00-0.50); Eosinophils % (auto) 3.4 %; Hemoglobin 10.1 g/dl (12.0-16.0); Immature Granulocytes # (auto) 0.04 K/uL (0.01-0.20); Immature Granulocytes % (auto) 0.5 %; Lymphocytes # (auto) 0.87 K/uL (1.20-3.40); Lymphocytes % (auto) 10.7 %; Mean Corpuscular Hemoglobin 30.3 pg (25.0-34.0); Mean Corpuscular Hgb Conc 33.7 g/dL (32.0-36.0); Mean Corpuscular Volume 90.1 fL (80.0-100.0); Mean Platelet Volume 9.5 fL (9.4-12.4); Monocytes % (auto) 24.6 %; Neutrophils % (auto) 60.2 %; Platelet Count 213 K/uL (130-400); RDW Coefficient of Variation 13.4 % (11.5-14.5); RDW Standard Deviation 45.1 fL (36.4-46.3); Red Blood Count 3.33 M/uL (4.20-5.40); White Blood Count 8.14 K/ul (4.8-10.8)
[2024-06-01 07:45] LABS: BUN Creatinine Ratio 23.5 (10-20); C Reactive Protein 29.44 mg/dl (0-0.5); Calcium 8.4 mg/dl (8.6-10.3); Creatinine Clr Calc Pharmacy 55.3 ml/min; Potassium 3.4 mmol/L (3.5-5.1)
--- NOTE | 2024-06-01 16:44 | Hospitalist Progress Note ---
Date of Service June 01, 2024 Assessment & Plan (1) Sepsis: Plan: SIRS criteria met with HR and elevated WBC Secondary to urinary source, urine culture with E. coli without sensitives. Blood cultures negative after 24 hours. Liver US unremarkable WBC improving Continue empiric ceftriaxone; patient still with intermittent fevers. Procal remains elevated. will keep in house until fever free for 24 hours (2) Rhabdomyolysis: Plan: CK down from admission. Will discontinue further IV fluids after current order as eating and drinking well (3) Fall: Plan: Secondary to generalized weakness suspect from UTI PT/OT - recommends rehab; patient opting now for home health (4) Hypothyroidism: Plan: TSH WNL Continue levothyroxine (5) Hypertension: Plan: Continue to hold HCTZ Continue metoprolol (6) Acute UTI (urinary tract infection): Plan VTE Prophylaxis - heparin 5000 units SQ BID Diet - regular Disposition - stable for transfer to med/surg patient is asking to be discharged home Admission and Anticipated Discharge Date Admission Date: May 29, 2024 Subjective Patient reports no new symptoms. She did have a fever overnight Physical Exam Constitutional: WD/WN, vitals as above Respiratory: normal respiratory effort, lungs clear to auscultation Cardiovascular: Rate/Rhythm: regular rate and regular rhythm Heart Sounds: no murmur Extremities: no calf tenderness and no pedal edema Gastrointestinal (Abdomen): normal bowel sounds, soft, nontender, no hepatosplenomegaly Musculoskeletal: no cyanosis or clubbing, extremities motor strength 5/5 Skin: no rashes, warm and dry Neurologic: moves all extremities and awake; not confused Psychiatric: A+Ox3, euthymic affect Results & Data Results & Data Vital Signs (Past 12 Hours) Vital Signs Temp Pulse Resp BP Pulse Ox O2 Del Method 06/01/24 08:11 36.4 C L 90 16 121/74 94 Room Air PG Care Time/CCT Total # of Minutes Spent Total Time Spent with Patient: Total time spent is greater than 50% in coordination of care (as documented) at patient's floor/unit and/or counseling patient: Coding Level of Care Code 85955 SUB INP/OBS CARE 3/50MIN Diagnoses Sepsis A41.9 Rhabdomyolysis M62.82 Fall W19.XXXA Hypothyroidism E03.9 Hypertension I10 Acute UTI (urinary tract infection) N39.0
[2024-06-02 00:22] LABS: Babesia microti DNA Not Detected (Not Detected)
[2024-06-02 07:09] LABS: Basophils # (auto) 0.06 K/uL (0.00-0.20); Basophils % (auto) 0.9 %; Eosinophils # (auto) 0.32 K/uL (0.00-0.50); Eosinophils % (auto) 4.8 %; Hematocrit (blood only) 30.2 % (37.0-47.0); Immature Granulocytes # (auto) 0.05 K/uL (0.01-0.20); Immature Granulocytes % (auto) 0.7 %; Lymphocytes # (auto) 1.36 K/uL (1.20-3.40); Lymphocytes % (auto) 20.3 %; Mean Corpuscular Hemoglobin 29.5 pg (25.0-34.0); Mean Corpuscular Hgb Conc 33.1 g/dL (32.0-36.0); Mean Corpuscular Volume 89.1 fL (80.0-100.0); Mean Platelet Volume 9.4 fL (9.4-12.4); Monocytes # (auto) 1.61 K/uL (0.11-0.59); Neutrophils % (auto) 49.3 %; Platelet Count 237 K/uL (130-400); RDW Coefficient of Variation 13.7 % (11.5-14.5); RDW Standard Deviation 44.9 fL (36.4-46.3); Red Blood Count 3.39 M/uL (4.20-5.40)
[2024-06-02 07:21] LABS: Albumin Globulin Ratio 0.9 (0.9-2); BUN Creatinine Ratio 22.7 (10-20); Bilirubin,Total 0.3 mg/dl (0.2-1.0); C Reactive Protein 23.5 mg/dl (0-0.5); Calcium 8.7 mg/dl (8.6-10.3); Creatinine Clr Calc Pharmacy 61.6 ml/min; Globulin 3.3 gm/dl (2.5-4.0); Potassium 3.7 mmol/L (3.5-5.1); Total Protein 6.3 gm/dl (6.0-8.3)
--- NOTE | 2024-06-02 19:11 | Hospitalist Progress Note ---
Date of Service June 02, 2024 Assessment & Plan (1) Sepsis: Plan: SIRS criteria met with HR and elevated WBC-Secondary to urinary source, urine culture with E. coli pansens. Blood cultures remain NGTD Liver US shows hemangioma in liver, fullness of right renal collecting system, and enlarged perihepatic LN---> suggest repeat RUQ US in [address] which may be reactive to current infection Leukocytosis resolved, fevers now resolved, feeling well Continue ceftriaxone, convert to po abx on discharge to complete 10 day course for pyelo (2) CLAIRE (acute kidney injury): Plan: Acute kidney failure- Creatinine 1.50 on admission from baseline of 1.28 on 10/11 Secondary to UTI, sepsis, less likely rhabdomyolysis Was given IV hydration, IV ceftriaxone for UTI, and holding home HCTZ improved/resolved now follow BMP (3) Acute UTI (urinary tract infection): Plan: as above (4) Rhabdomyolysis: Plan: CK down from admission and rhabdo was mild with CK 1600 No further IVFs given (5) Anemia: Plan: hgb 10, normocytic check Fe, B12, folate, TSH no active bleeding had colonoscopy 2-3 years ago, cannot recall having EGD. Reports lifetime of Fe deficiency (6) Fall: Plan: Secondary to generalized weakness suspect from UTI PT/OT - recommends rehab-awaiting placement (7) Hypothyroidism: Plan: TSH WNL Continue levothyroxine (8) Hypertension: Plan: Continue to hold HCTZ Continue metoprolol With abnormal ECG on admission--> repeated and now without diffuse ST depressions and TWIs. Repeat trop normal HL-continue statin OAB-continue myrbetriq although considering stopping as can contribute to UTI Allergies-continue singulair, azelastine nasal srpay Migraines-continue ELavil, ibuprofen prn *Obesity with BMI=40.5 needs weight loss Plan VTE Prophylaxis - heparin 5000 units SQ BID Disposition - medically stable for dc, awaiting SNF placement Admission and Anticipated Discharge Date Admission Date: May 29, 2024 Subjective Feeling well, no abd pain or acute back pain over her chronic low back pain No CP, SOB. Physical Exam Constitutional: WD/WN, vitals as above Respiratory: normal respiratory effort, lungs clear to auscultation Cardiovascular: RRR, no murmur, no edema Gastrointestinal (Abdomen): normal bowel sounds, soft, nontender, no hepatosplenomegaly Psychiatric: A+Ox3, euthymic affect Results & Data Results & Data Vital Signs (Past 12 Hours) Vital Signs Temp Pulse Pulse Resp BP BP Pulse Ox 06/02/24 15:45 36.3 C L 88 18 120/66 99 06/02/24 12:00 36.5 C 90 18 120/76 94 06/02/24 08:00 36.5 C 86 18 126/78 94 O2 Del Method 06/02/24 15:45 Room Air 06/02/24 12:00 Room Air 06/02/24 08:00 Room Air Laboratory Results CBC, CMP, urine cx reviewed PG Care Time/CCT Total # of Minutes Spent Total Time Spent with Patient: Total time spent is greater than 50% in coordination of care (as documented) at patient's floor/unit and/or counseling patient: Coding Level of Care Code 49393 SUB INP/OBS CARE 2/35MIN Diagnoses Sepsis A41.9 CLAIRE (acute kidney injury) N17.9 Acute UTI (urinary tract infection) N39.0 Rhabdomyolysis M62.82 Anemia D64.9 Fall W19.XXXA Hypothyroidism E03.9 Hypertension I10
[2024-06-03 06:31] LABS: Basophils # (auto) 0.05 K/uL (0.00-0.20); Basophils % (auto) 0.7 %; Eosinophils # (auto) 0.47 K/uL (0.00-0.50); Hematocrit (blood only) 30.7 % (37.0-47.0); Hemoglobin 10.4 g/dl (12.0-16.0); Immature Granulocytes # (auto) 0.08 K/uL (0.01-0.20); Immature Granulocytes % (auto) 1.2 %; Lymphocytes # (auto) 1.39 K/uL (1.20-3.40); Lymphocytes % (auto) 20.7 %; Mean Corpuscular Hemoglobin 30.4 pg (25.0-34.0); Mean Corpuscular Hgb Conc 33.9 g/dL (32.0-36.0); Mean Corpuscular Volume 89.8 fL (80.0-100.0); Mean Platelet Volume 9.3 fL (9.4-12.4); Monocytes # (auto) 1.15 K/uL (0.11-0.59); Monocytes % (auto) 17.1 %; Neutrophils # (auto) 3.57 K/uL (1.40-6.50); Neutrophils % (auto) 53.3 %; Platelet Count 269 K/uL (130-400); RDW Coefficient of Variation 13.7 % (11.5-14.5); RDW Standard Deviation 45.1 fL (36.4-46.3); Red Blood Count 3.42 M/uL (4.20-5.40); White Blood Count 6.71 K/ul (4.8-10.8)
[2024-06-03 07:00] LABS: BUN Creatinine Ratio 25.3 (10-20); Calcium 8.9 mg/dl (8.6-10.3); Creatinine Clr Calc Pharmacy 57.1 ml/min
[2024-06-03 07:19] LABS: Ferritin 180.7 ng/ml (8-388)
[2024-06-03 07:22] LABS: Folate (Folic Acid),Ser orPlas 7.32 ng/ml (>5.38)
--- NOTE | 2024-06-03 19:49 | Hospitalist Progress Note ---
Date of Service June 03, 2024 Assessment & Plan (1) Sepsis: Plan: SIRS criteria met with tachycardia and leukocytosis-Secondary to urinary source, urine culture with E. coli pansens. Blood cultures remain NGTD Liver US shows hemangioma in liver, fullness of right renal collecting system, and enlarged perihepatic LN---> suggest repeat RUQ US in [address] which may be reactive to current infection Leukocytosis resolved, fevers now for over 48 hours, feeling well Continue ceftriaxone, convert to po abx on discharge with cefuroxime to complete 10 day course for pyelo (2) CLAIRE (acute kidney injury): Plan: Acute kidney failure- Creatinine 1.50 on admission from baseline of 1.28 on 10/11 Secondary to UTI, sepsis, less likely rhabdomyolysis Was given IV hydration, IV ceftriaxone for UTI, and holding home HCTZ improved/resolved now, creatinine normal Okay to resume HCTZ after discharge (3) Acute UTI (urinary tract infection): Plan: as above (4) Rhabdomyolysis: Plan: CK down from admission and rhabdo was mild with CK 1600 No further IVFs given (5) Anemia: Plan: hgb 10 and stable from previous, normocytic, no bleeding noted. Hemoglobin pre viously 12 and some of this could be hemodilutional from receiving IV fluids, but she has been off IV fluids now for several days and it remains at 10. B12, folate, TSH normal Iron studies with transferrin saturation 14%, serum iron borderline low, TIBC normal, ferritin 180 in the setting of infection-acute phase reactant Could be combination of mild iron deficiency but mostly anemia of chronic di sease although no chronic disease noted that should cause this no active bleeding had colonoscopy 2-3 years ago, cannot recall having EGD. Reports lifetime of Fe deficiency Recommend starting ferrous sulfate 325 Mg p.o. once daily Recommend outpatient GI workup if hemoglobin does not return to normal after discharge-discussed with patient Follow-up with PCP (6) Fall: Plan: Secondary to generalized weakness suspect from UTI PT/OT - recommends rehab-awaiting placement (7) Hypothyroidism: Plan: TSH WNL Continue levothyroxine (8) Hypertension: Plan: Continue to hold HCTZ but can likely resume on discharge Continue metoprolol With abnormal ECG on admission--> repeated and now without diffuse ST depressions and TWIs. Repeat trop normal HL-continue statin OAB-continue myrbetriq although considering stopping as can contribute to UTI Allergies-continue singulair, azelastine nasal srpay Migraines-continue ELavil, Topamax, ibuprofen prn Obesity with BMI=40.5-needs weight loss, discussed talking to PCP about possibly starting GLP-1 agonist Continue metformin for prediabetes Plan VTE Prophylaxis - heparin 5000 units SQ BID Disposition - medically stable for dc, awaiting SNF placement-plan for tomorrow at [facility] Admission and Anticipated Discharge Date Admission Date: May 29, 2024 Subjective Patient feeling well. Denies chest pains or shortness of breath, no abdominal pain. Has her chronic lower back pain. She was out of bed with PT today. No fevers. Anxious to get to rehab. Physical Exam Constitutional: WD/WN, vitals as above Respiratory: normal respiratory effort, lungs clear to auscultation Cardiovascular: RRR, no murmur, no edema Gastrointestinal (Abdomen): normal bowel sounds, soft, nontender, no hepatosplenomegaly Psychiatric: A+Ox3, euthymic affect Results & Data Results & Data Vital Signs (Past 12 Hours) Vital Signs Temp Pulse Resp BP Pulse Ox O2 Del Method 06/03/24 15:45 36.9 C 92 H 18 115/74 95 Room Air 06/03/24 08:02 36.5 C 92 H 18 130/77 92 Room Air PG Care Time/CCT Total # of Minutes Spent Total Time Spent with Patient: Total time spent is greater than 50% in coordination of care (as documented) at patient's floor/unit and/or counseling patient: Coding Level of Care Code 57279 SUB INP/OBS CARE 2/35MIN Diagnoses Sepsis A41.9 CLAIRE (acute kidney injury) N17.9 Acute UTI (urinary tract infection) N39.0 Rhabdomyolysis M62.82 Anemia D64.9 Fall W19.XXXA Hypothyroidism E03.9 Hypertension I10
[2024-06-03] MEDS: MAGNESIUM OXIDE 400 MG TAB PO SCH (21:09)
--- NOTE | 2024-06-04 06:10 | Electrocardiogram Report ---
Test Reason : Blood Pressure : */* mmHG Vent. Rate : 88 BPM Atrial Rate : 88 BPM P-R Int : 150 ms QRS Dur : 102 ms QT Int : 408 ms P-R-T Axes : 25 6 35 degrees QTcB Int : 494 ms Poor data quality, interpretation may be adversely affected Normal sinus rhythm with sinus arrhythmia Prolonged QT Abnormal ECG When compared with ECG of 29-May-2024 15:13, T wave inversion no longer evident in Inferior leads T wave inversion no longer evident in Lateral leads Confirmed by Michael Christine ([id number]) on 06/04/2024 6:09:51 AM Referred By: REFERRED SELF Confirmed By: Michael Christine
[2024-06-04 08:05] VITALS: BP 121/75; PULSE 88; RESP 16; TEMP 97.9; O2SAT 92
[2024-06-04] MEDS: FERROUS SULFATE 325 MG TAB PO SCH (08:42)
[2024-06-04] MEDS: MULTIVITAMIN TAB PO SCH (08:42)
[2024-06-04] MEDS: metFORMIN HCL ER 500 MG TABCR PO SCH (08:42)
[2024-06-04] MEDS: hydroCHLOROthiazide 25 MG TAB PO SCH (08:42)
[2024-06-04] MEDS: POTASSIUM CHLORIDE 10 MEQ TABCR PO SCH (08:45)
--- NOTE | 2024-06-04 10:14 | Discharge Summary ---
Discharge Summary Date of Service June 04, 2024 Principal Dx & Hospital Course #1 = Principal Diagnosis (1) Sepsis: SIRS criteria met with tachycardia and leukocytosis-Secondary to urinary source, urine culture with E. coli pansens. Blood cultures remain NGTD Liver US shows hemangioma in liver, fullness of right renal collecting system, and enlarged perihepatic LN---> suggest repeat RUQ US in [address] which may be reactive to current infection Leukocytosis resolved, fevers now for over 72 hours, feeling well Received ceftriaxone, convert to po cefdinir on discharge to complete 10 day course for pyelo-needs 3.5 more days (2) CLAIRE (acute kidney injury): Acute kidney failure- Creatinine 1.50 on admission from baseline of 1.28 on 10/11 Secondary to UTI, sepsis, less likely rhabdomyolysis Was given IV hydration, IV ceftriaxone for UTI, and holding home HCTZ improved/resolved now, creatinine normal Okay to resume HCTZ (3) Acute UTI (urinary tract infection): as above (4) Rhabdomyolysis: CK down from admission and rhabdo was mild with CK 1600 No further IVFs given (5) Anemia: hgb 10 and stable from previous, normocytic, no bleeding noted. Hemoglobin previously 12 and some of this could be hemodilutional from receiving IV fluids, but she has been off IV fluids now for several days and it remains at 10. B12, folate, TSH normal Iron studies with transferrin saturation 14%, serum iron borderline low, TIBC normal, ferritin 180 in the setting of infection-acute phase reactant Could be combination of mild iron deficiency but mostly anemia of chronic disease although no chronic disease noted that should cause this no active bleeding had colonoscopy 2-3 years ago, cannot recall having EGD. Re ports lifetime of Fe deficiency Recommend starting ferrous sulfate 325 Mg p.o. once daily Recommend outpatient GI workup if hemoglobin does not return to normal after discharge-discussed with patient Follow-up with PCP Check CBC in 1 week (6) Fall: Secondary to generalized weakness suspect from UTI PT/OT - recommends rehab (7) Hypothyroidism: TSH WNL Continue levothyroxine (8) Hypertension: Held HCTZ for CLAIRE but now resumed on day of discharge Continue metoprolol With abnormal ECG on admission--> repeated and now without diffuse ST depressions and TWIs. Repeat trop normal HL-continue statin OAB-continue myrbetriq although considering stopping as can contribute to UTI Allergies-continue singulair, azelastine nasal srpay Migraines-continue ELavil, Topamax, ibuprofen prn Obesity with BMI=40.5-needs weight loss, discussed talking to PCP about possibly starting GLP-1 agonist Continue metformin for prediabetes Plan VTE Prophylaxis - heparin 5000 units SQ BID Disposition - medically stable for dc to Center care Notes For Next Care Provider Check RUQ US in 1 month Check CBC in 1 week and refer to GI if remains with anemia Medication Changes From Visit Started FeSO4 325mg po daily Started cefdinir 300mg po bid x 3.5 more days Admission HPI Per Admitting Provider Richelle Thurman is a 78 year old female who presents to the ER with a fall and generalized weakness. She also notes bladder pains for the last month and urinary frequency for the last week. Fever for the last 2 days with high 101.1 degrees Fahrenheit. No back pain, dysuria or change in urine color or smell. No respiratory of gastrointestinal symptoms. She lives by herself. She took all her morning medications this morning. Discharge Exam Constitutional WD/WN, vitals as above Respiratory normal respiratory effort, lungs clear to auscultation Cardiovascular RRR, no murmur, no edema Gastrointestinal (Abdomen) normal bowel sounds, soft, nontender, no hepatosplenomegaly Psychiatric A+Ox3, euthymic affect Discharge Plan Discharge Items Patient Disposition: Transfer Intermediate Fac Reason For Visit: SEPSIS, UTI Discharge Diagnosis: Sepsis, UTI Rhabdomyolysis Acute kidney injury Fall Activity: As commented below Lifting: Gradually increase as tolerated Bathing: No limitations Exercise/Sports: Gradually increase as tolerated Non-emergency contact: Primary Care Provider Call non-emergency contact if: you have any medication questions and your symptoms worsen Follow-up/Referrals: Mary Rodriguez MD [Primary Care Provider] - (Follow-up within 2 weeks after discharge from rehab) Diet: Carb Consistent or DM2 and Heart Healthy Addtl Attending Provider Instructions: Please finish out 3 and half more days of the oral antibiotic for your urinary tract infection. You will need physical and Occupational Therapy for rehab before you return home. Please have a repeat right upper quadrant ultrasound performed in 1 month to follow-up on the enlarged lymph nodes seen around the liver to see if it has returned to normal size. Please check a complete blood count in 1 week. If your hemoglobin is not returning to normal, please talk to your primary care physician about a referral to GI for endoscopies. You were started on a low-dose of an oral iron supplement. Pending Studies at Discharge: No Stand-Alone Forms: My [facility] Skilled Items Patient informed of condition?: Yes DNR: No Discharge Level of Care: Skilled Communicable Disease: No Discharge Prognosis: Improving Lines: None Urinary Catheter: No Medications and DC Order Prescriptions: New ferrous sulfate 325 mg (65 mg iron) Tablet,Delayed Release (Dr/Ec) 325 mg PO QAM Qty: 30 0RF acetaminophen 500 mg capsule 1,000 mg PO TID PRN (Reason: pain) Qty: 90 0RF cefdinir 300 mg capsule 300 mg PO BID Qty: 7 0RF Continued albuterol sulfate 90 mcg/actuation HFA aerosol inhaler 2 puff inhalation Q6H PRN (Reason: shortness of breath or wheezing) Qty: 8.5 1RF diclofenac sodium 1 % gel 2 g topical QID PRN (Reason: arthritis pain) Qty: 100 2RF Rx Instructions: apply to single elbow, wrist or hand; for hand includes palm/fingers/back of hand. Unable to verify OTC meds at this date/time. metoprolol succinate 25 mg tablet extended release 24 hr 25 mg PO DAILY Qty: 90 3RF montelukast 10 mg tablet 10 mg PO DAILY Qty: 90 3RF rosuvastatin 5 mg tablet 5 mg PO DAILY Qty: 90 3RF metformin 500 mg tablet extended release 24 hr 500 mg PO DAILY Qty: 90 3RF amitriptyline 25 mg tablet See Rx Instructions .ROUTE .COMPLEX Qty: 450 3RF Dose Instruction: TAKE 5 TABLETS BY MOUTH AT BEDTIME Rx Instructions: TAKE 5 TABLETS BY MOUTH AT BEDTIME Gemtesa 75 mg tablet 75 mg PO DAILY Qty: 90 2RF levothyroxine 125 mcg tablet 125 mcg PO DAILY Qty: 90 3RF coenzyme Q10 200 mg capsule 400 mg PO QAM Rx Instructions: Unable to verify OTC meds at this date/time. multivitamin tablet 1 tab PO HS Rx Instructions: Unable to verify OTC meds at this date/time. digestive enzymes capsule 2 cap PO BID Patient Comments: lunch and dinner - "[employer]" Rx Instructions: Unable to verify OTC meds at this date/time. topiramate 50 mg tablet 50 mg PO HS Qty: 90 3RF hydrochlorothiazide 25 mg tablet 25 mg PO DAILY Qty: 90 3RF potassium chloride 10 mEq tablet extended release 10 meq PO DAILY Qty: 90 3RF magnesium oxide 200 mg magnesium Tablet 600 mg PO HS Rx Instructions: Unable to verify OTC meds at this date/time. Move Free Plus MSM 500 mg-66.7 mg- 500 mg-1.1 mg Tablet 3 tab PO DAILY Rx Instructions: Unable to verify OTC meds at this date/time. azelastine 137 mcg (0.1 %) Cosby,Non-Aerosol 2 spray INTRANASAL BID Rx Instructions: administer into each nostril Changed ibuprofen 200 mg Tablet 600 mg PO QAM PRN (Reason: Pain) Qty: 30 0RF Rx Instructions: Unable to verify OTC meds at this date/time. Discontinued acetaminophen [Tylenol Arthritis Pain] 650 mg tablet extended release 1,950 mg PO BID Rx Instructions: 3tabs in the afternoon and 3tabs at night. Unable to verify OTC meds at this date/time. Discharge Orders: Discharge Order (Routine); Ordered 06/04/24 Ordered By: Lottie Michaud/Other Patient Handouts: Urinary Tract Infections in Women Admission Data Admit Date/Time: 05/29/24 18:36 Attending Provider: Lottie Randall Admit Provider: Quentin Field Primary Care Provider: Mary Rodriguez Other Providers: Froid,[facility] Other Interventions: Discharge Summary Assessment (RN) Last Done: 06/04/24 10:56 Hospital Stay Data Diagnostic Imagining Performed 05/29/24 17:55 US liver Stat Pending Results Patient Have Any Pending Studies at Discharge: No Discharge Instructions Given to Patient (Per Discharging Provider) Please finish out 3 and half more days of the oral antibiotic for your urinary tract infection. You will need physical and Occupational Therapy for rehab before you return home. Please have a repeat right upper quadrant ultrasound performed in 1 month to follow-up on the enlarged lymph nodes seen around the liver to see if it has returned to normal size. Please check a complete blood count in 1 week. If your hemoglobin is not returning to normal, please talk to your primary care physician about a referral to GI for endoscopies. You were started on a low-dose of an oral iron supplement. Total Time Total Time Spent Total Time Spent (In Minutes): 35 min Total Time Includes: Examination of the Patient, Discharge Planning and Medication Reconciliation Coding Level of Care Code 32660 INP/OBS DISCH >30 MIN Diagnoses Sepsis A41.9 CLAIRE (acute kidney injury) N17.9 Acute UTI (urinary tract infection) N39.0 Rhabdomyolysis M62.82 Anemia D64.9 Fall W19.XXXA Hypothyroidism E03.9 Hypertension I10
== END 2024-06-04 13:21 | DRG 872 ==
LOC: ED 14:36 → SUATTDRO 18:36 → 2S 18:36 → 3N 05-30 22:53